=== PATIENT | female | born 1955 | race Caucasian/White ===

== ENCOUNTER 2020-02-03 10:26 | Inpatient (IN) ==
[~2020-02-03 10:26] MED LIST: Buffered Lidocaine 1% SYRIN 1 ml INTRADERM ONE; Famotidine IV 10 MG/ML 2 ml VIAL (20 mg) IV ONE; Lactated Ringers 1000 ml BAG 1,000 ML IV SCH; Lidocaine 2% PF 5 ML VIAL ONE; Midazolam 2 mg/2 ml VIAL 1 mg/ml 2 ml VIAL (2 mg) ONE; Propofol 10 MG/ML 20 ML BTL ONE; Rocuronium 50 mg VIAL 10 mg/ml 5 ml VIAL (50 mg) ONE; fentaNYL 100 mcg/2 ml 50 MCG/ML VIAL ONE
[2020-02-03] MEDS ORDERED: Clindamycin 900 MG/D5W BAG 900 MG/50 ML BAG IVPB ONE ×2 (10:53→11:05)
[2020-02-03] MEDS ORDERED: Famotidine IV 10 MG/ML 2 ml VIAL (20 mg) ONE (10:53)
[2020-02-03] MEDS ORDERED: Lidocaine 1% w EPI 1:100,000 MDV 20 ML VIAL ONE (11:11)
[2020-02-03] MEDS ORDERED: Bacitracin INJECTION 50,000 UNITS ONE (11:11)
[2020-02-03] MEDS ORDERED: ROPIVACAINE 5 MG/ML 30 ML BTL (0.5%) ONE (11:16)
[2020-02-03] MEDS ORDERED: Lidocaine 1% MPF 5 ML VIAL ONE (11:16)
[2020-02-03] MEDS ORDERED: Phenylephrine IV 10 MG/ML 1 ml VIAL ONE (12:34)
[2020-02-03] MEDS ORDERED: Phenylephrine 40 mcg/mL 10mL (400mcg) SYRINGE ONE (12:34)
[2020-02-03] MEDS ORDERED: Rocuronium 50 mg VIAL 10 mg/ml 5 ml VIAL (50 mg) ONE (13:06)
[2020-02-03] MEDS ORDERED: Ondansetron 4 mg VIAL 2 MG/ML 2 ml VIAL ONE (14:06)
[2020-02-03] MEDS ORDERED: Dexamethasone IV 4 MG/ML VIAL 1 ml VIAL ONE (14:06)
[2020-02-03] MEDS ORDERED: DiMENhydriNATE IV 50 mg/ml 1 ml VIAL IV PUSH PRN (15:22)
[2020-02-03] MEDS ORDERED: Naloxone 0.4 mg VIAL 0.4 mg/ml 1 ml VIAL IV PRN (15:22)
[2020-02-03] MEDS ORDERED: HYDROmorphone 1 MG/1 ML SYRINGE IV PRN (15:22)
[2020-02-03] MEDS ORDERED: diPHENhydraMINE 25 mg TAB PO PRN (15:41)
[2020-02-03] MEDS ORDERED: diPHENhydraMINE IV 50 MG/ML 1 ml VIAL (BENADRYL) IV PRN (15:41)
[2020-02-03] MEDS ORDERED: Ondansetron ODT 4 mg TAB 4 MG TAB PO PRN (15:41)
[2020-02-03] MEDS ORDERED: Ondansetron 4 mg VIAL 2 MG/ML 2 ml VIAL IV PRN (15:41)
[2020-02-03] MEDS ORDERED: Magnesium Hydroxide LIQ 30 ML UDC PO PRN (15:41)
[2020-02-03] MEDS ORDERED: Lactulose 30 ml UDC PO PRN (15:41)
[2020-02-03] MEDS ORDERED: Lactated Ringers 1000 ml BAG 1,000 ML IV SCH (16:00)
[2020-02-03] MEDS: Clindamycin 600 MG/D5W BAG 600 MG/50 ML BAG IV SCH (20:04)
[2020-02-03] MEDS: Magnesium Hydroxide LIQ 30 ML UDC PO SCH (20:21)
[2020-02-03 21:57] LABS: Hematocrit 28 % (35-47); Hemoglobin 9.4 g/dL (12.0-16.0)
[2020-02-03] MEDS ORDERED: NS 0.9% 500 ml BAG 500 ML IV ONE (22:00)
[2020-02-03] MEDS ORDERED: NS 0.9% 500 ML BAG IV ONE (22:45)
[2020-02-04] MEDS: Morphine 2 MG/ML SYRINGE IV PRN ×2 (02:07→08:46)
[2020-02-04] MEDS: Clindamycin 600 MG/D5W BAG 600 MG/50 ML BAG IV SCH ×2 (03:48→11:46)
[2020-02-04 04:31] LABS: Hematocrit 27 % (35-47); Hemoglobin 9.3 g/dL (12.0-16.0); Mean Platelet Volume 7.6 fL (7.4-10.4); Platelet Count 295 10^3/uL (150-450)
[2020-02-04 04:49] LABS: BUN/Creatinine Ratio 34.8 (8-20); Calcium 8.3 mg/dL (8.6-10.3); EGFR Non-African American 136.3 (>60); Potassium 3.8 mmol/L (3.5-5.0)
[2020-02-04] MEDS: Vitamin THERAPEUTIC TAB PO SCH (08:37)
[2020-02-04] MEDS: Magnesium Hydroxide LIQ 30 ML UDC PO SCH ×2 (08:39→20:44)
[2020-02-04] MEDS ORDERED: Influenza VAC *QUAD* 2020-21* 0.5 ML SYRINGE IM ONE (09:00)
[2020-02-04] MEDS ORDERED: NS 0.9% 500 ml BAG 500 ML IV ONE (16:37)
[2020-02-05 05:39] LABS: Hematocrit 27 % (35-47); Hemoglobin 9.2 g/dL (12.0-16.0); Mean Platelet Volume 7.5 fL (7.4-10.4); Platelet Count 276 10^3/uL (150-450)
[2020-02-05 07:35] VITALS: BP 104/63
[2020-02-05 08:35] LABS: Calcium 8.4 mg/dL (8.6-10.3); Potassium 4.1 mmol/L (3.5-5.0)
[2020-02-05] MEDS: Magnesium Hydroxide LIQ 30 ML UDC PO SCH (08:37)
[2020-02-05] MEDS: Vitamin THERAPEUTIC TAB PO SCH (08:37)
[2020-02-05 08:41] LABS: EGFR African American 226.1 (>60); EGFR Non-African American 186.9 (>60)
== END 2020-02-05 11:10 | disposition home or self-care (01) | DRG 315 ==
LOC: SSU 10:26 → OR 10:26 → OBSVTOIN 17:09
PROVIDERS: ADMIT Orthopaedic Surgery Sports Medicine; ATTEND Orthopaedic Surgery Sports Medicine